=== PATIENT | male | born 1935 | race Two or more races ===

== ENCOUNTER 2017-07-29 17:48 | Inpatient (IN) | payer MEDICARE, MEDICAID ==
[~2017-07-29] VITALS: Ht 154.9 cm; Wt 60.3 kg
--- NOTE | 2017-07-29 18:00 | NUR ---
PATIENT BIB [facility] C/O COUGH AND CONGESTION. PATIENT IS A/OX 3, TURKISH SPEAKING. BREATHING EVEN AND UNLABORED. NO SOB. UNABLE TO OBTAIN HISTORY WITH LANGUAGE BARRIER. SAFETY AND COMFORT MEASURES IN PLACE. AWAITING MD ORDERS.
--- NOTE | 2017-07-29 18:23 | NUR ---
NEW IV STARTED ON LAC, 18 G. BLOOD DRAWN AND SENT TO LAB.
[2017-07-29 18:25] LABS: BASOPHILS # (AUTO) 0.3 /CMM (0.0-0.2); BASOPHILS % (AUTO) 1.8 % (0.0-2.0); EOSINOPHILS # (AUTO) 0.1 /CMM (0.0-0.7); EOSINOPHILS % (AUTO) 0.8 % (0.0-6.0); HEMATOCRIT 25 % (39-51); HEMOGLOBIN 8.3 g/dL (13.5-17.5); LYMPHOCYTES # (AUTO) 0.5 /CMM (0.8-4.8); LYMPHOCYTES % (AUTO) 3.3 % (20.0-44.0); MEAN CORPUSCULAR HEMOGLOBIN 28 PG (26.0-33.0); MEAN CORPUSCULAR HGB CONC 33 g/dl (31.0-36.0); MEAN CORPUSCULAR VOLUME 85 fL (80-96); MONOCYTES # (AUTO) 0.9 /CMM (0.1-1.30); MONOCYTES % (AUTO) 6.3 % (2.0-12.0); NEUTROPHILS # (AUTO) 12.8 /CMM (1.8-8.9); NEUTROPHILS % (AUTO) 87.8 % (43.0-81.0); PLATELET COUNT (AUTO) 277 /CMM (150-450); RDW COEFFICIENT OF VARIATION 16.5 (11.5-15.0); RED BLOOD CELL COUNT(AUTO) 2.98 MIL/uL (4.5-6.0); WHITE BLOOD COUNT (AUTO) 14.6 K/uL (4.3-11.0)
--- NOTE | 2017-07-29 18:27 | NUR ---
MD INFORMED BLOOD PRESSURE IS 84/52. PER MD HOLD LASIX AT THIS TIME. PATIENT REMAINS STABLE. WILL CONTINUE TO MONITOR.
[2017-07-29 18:34] LABS: CALCIUM, SERUM 8.2 mg/dL (8.5-10.1); CARBON DIOXIDE 31 mmol/L (21-32); CHLORIDE 97 mmol/L (98-107); CREATININE 0.9 mg/dL (0.6-1.3); GLUCOSE 320 mg/dL (74-106); POTASSIUM 3.7 mmol/L (3.5-5.1); SODIUM SERUM 133 mmol/L (136-145); UREA NITROGEN, BLOOD 23 mg/dL (7-18)
[2017-07-29 18:41] LABS: TROPONIN I 0.313 ng/mL (0.00-0.056)
[2017-07-29 18:46] LABS: B-TYPE NATRIURETIC PEPTIDE 13499 PG/ML (0-125)
--- NOTE | 2017-07-29 19:00 | NUR ---
RECEIVED REPORT FROM MARLENI SOUSA FOR JOHAN. PT APPEARS COMFORTABLE. AWARE OF CURRENT BP. NNO
[2017-07-29] MEDS ORDERED: METF500T4 PO (19:06)
[2017-07-29] MEDS ORDERED: DOCU-25 PO (19:06)
[2017-07-29] MEDS ORDERED: MIDO10TA PO (19:06)
[2017-07-29] MEDS ORDERED: MECL-102 PO (19:06)
[2017-07-29] MEDS ORDERED: HYDR-552 PO (19:06)
[2017-07-29] MEDS ORDERED: CARV3.122 PO (19:06)
--- NOTE | 2017-07-29 19:38 | NUR ---
[facility] called - DR. Ojeda - is paged via exchanged
--- NOTE | 2017-07-29 19:40 | NUR ---
DR. CROOK SPOKE TO DR. WILEY REGARDING ADMISSION
--- NOTE | 2017-07-29 19:54 | NUR ---
VERBAL ORDERS PER DR. CROOK TO GIVE PT ASA 81MG PO ONE TIME NOW FOR ELEVATED TROP. PT MEDICATED.
--- NOTE | 2017-07-29 19:57 | NUR ---
PT ASSIGNED TO [facility] 114-1
--- NOTE | 2017-07-29 20:03 | NUR ---
REPORT GIVEN TO MARLENI SIMPSON FOR [facility] 114-1
--- NOTE | 2017-07-29 20:21 | NUR ---
PT TO RADIOLOGY FOR CT CHEST
--- NOTE | 2017-07-29 20:28 | NUR ---
PT RETURNED [facility] CT.
--- NOTE | 2017-07-29 20:29 | NUR ---
PT TRANSFERRED TO [facility] 114-1 VIA ACLS PROTOCOL.
--- NOTE | 2017-07-29 20:30 | NUR ---
RN INITIAL NOTE RECEIVED PT IN NO ACUTE DISTRESS IN BED. PT IS A/O X 3 AND ABLE TO MAKE NEEDS KNOWN. PT IS [place] SPEAKING ONLY WITH AT BEDSIDE TO INTERPRET. PT IS ON O2 VIA NC @ 2LPM AND TOLERATING WELL WITH O2 SAT @ 98%. PT NOT C/O ANY SOB, DIFFICULTY BREATHING OR PAIN AT THIS TIME. PT HAS HYPOTENSION AND WAS GIVEN MIDODRINE 10MG IN ER. WILL CONTINUE TO MONITOR BP THROUGHOUT SHIFT. PT HAS LAC 20G IV THAT IS CLEAN DRY INTACT AND PATENT WITH SALINE FLUSH. BED IN LOW LOCK POSITION WITH RIALS UP X 2. CALL LIGHT WITHIN REACH AND ALL SAFETY MEASURES ENSURED AND CARRIED OUT. WILL CONTINUE TO MONITOR PT.
--- NOTE | 2017-07-29 22:00 | NUR ---
MARLENI SENA SPOKE WITH DR WILEY AND RECEIVED ORDERS FOR MIDODRINE 10MG BID PRN FOR BLOOD PRESSURE BELOW 90. Addendum: 07/30/17 at 0636 by CALVIN CARSON RN RECEIVED VERBAL ORDERS FROM DR WILEY.
[2017-07-30] VITALS: BP 94/54
[2017-07-30 04:00] VITALS: BP 98/56
[2017-07-30 06:36] LABS: BASOPHILS % (AUTO) 0.2 % (0.0-2.0); HEMATOCRIT 23 % (39-51); HEMOGLOBIN 7.4 g/dL (13.5-17.5); LYMPHOCYTES # (AUTO) 0.5 /CMM (0.8-4.8); LYMPHOCYTES % (AUTO) 3.7 % (20.0-44.0); MEAN CORPUSCULAR HEMOGLOBIN 28 PG (26.0-33.0); MEAN CORPUSCULAR HGB CONC 32 g/dl (31.0-36.0); MEAN CORPUSCULAR VOLUME 87 fL (80-96); MONOCYTES # (AUTO) 0.7 /CMM (0.1-1.30); MONOCYTES % (AUTO) 5.7 % (2.0-12.0); NEUTROPHILS # (AUTO) 11.2 /CMM (1.8-8.9); NEUTROPHILS % (AUTO) 90.4 % (43.0-81.0); PLATELET COUNT (AUTO) 262 /CMM (150-450); RDW COEFFICIENT OF VARIATION 18.6 (11.5-15.0); RED BLOOD CELL COUNT(AUTO) 2.68 MIL/uL (4.5-6.0); WHITE BLOOD COUNT (AUTO) 12.4 K/uL (4.3-11.0)
--- NOTE | 2017-07-30 06:36 | NUR ---
RN CLOSING NOTE PT REMAINS IN NO ACUTE DISTRESS IN BED. PT DID NOT HAVE ANY SIGNIFICANT CHANGE IN CONDITION DURING SHIFT. ALL NEEDS MET ALL ORDERS CARRIED OUT. WILL ENDORSE CARE TO AM RN FOR CONTINUITY OF CARE.
[2017-07-30 06:59] LABS: B-TYPE NATRIURETIC PEPTIDE 16207 PG/ML (0-125); CALCIUM, SERUM 8.4 mg/dL (8.5-10.1); CARBON DIOXIDE 34 mmol/L (21-32); CHLORIDE 100 mmol/L (98-107); CREATININE 0.7 mg/dL (0.6-1.3); GLUCOSE 231 mg/dL (74-106); MAGNESIUM 1.9 mg/dL (1.8-2.4); PHOSPHORUS 2.8 mg/dL (2.5-4.9); POTASSIUM 3.4 mmol/L (3.5-5.1); SODIUM SERUM 138 mmol/L (136-145); UREA NITROGEN, BLOOD 17 mg/dL (7-18)
[2017-07-30 07:02] LABS: CHOLESTEROL 90 mg/dL (<200); HDL CHOLESTEROL 22 mg/dL (40-60); LDL 57 mg/dL (0-99); THYROID STIMULATING HORMONE 1.224 uIU/mL (0.358-3.74); TRIGLYCERIDES 62 mg/dL (30-150)
--- NOTE | 2017-07-30 07:12 | NUR ---
NET APPLICATIONS DEVELOPER INITIAL NOTE RECEIVED PT AWAKE IN BED IN NO ACUTE DISTRESS. A/O X 3 AND VERBALLY RESPONSIVE, DENIES PAIN OR DISCOMFORTS AT THIS TIME. PT IS DANISH SPEAKING ONLY WITH AT BEDSIDE TO INTERPRET. ON O2 VIA NC @ 2LPM, TOLERATING WELL WITH NO SIB NOTED. PT HAS IV ACCESS ON LAC G# 20G INTACT AND PATENT, SALINE LOCK ONLY. BED IN LOW AND LOCKED POSITION WITH SIDE-RAILS UP X 2. CALL LIGHT WITHIN REACH. ALL SAFETY MEASURES ENSURED. WILL CONTINUE TO MONITOR PT ACCORDINGLY. 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 DR YWNNE ON UNIT AND MADE AWARE. WENT TO CHECK AND EVALUATE PT. WILL CONTINUE TO MONITOR.
[2017-07-30 08:00] VITALS: BP 123/65
[2017-07-30 09:09] LABS: MAGNESIUM 1.9 mg/dL (1.8-2.4)
[2017-07-30 09:29] LABS: THYROID STIMULATING HORMONE 1.16 uIU/mL (0.358-3.74)
--- NOTE | 2017-07-30 10:03 | NUR ---
RN NOTES SWALLOWING EVALUATION DONE BY ST, SAME EVALUATED BY PLASTER FOREMAN. PT PLACED ON CARDIAC/DIABETIC DIET PUREED CONSISTENCY AND RECOMMENDED BOOST VANILLA FLAVOR TID IN BETWEEN MEALS. WILL CONTINUE TO MONITOR
--- NOTE | 2017-07-30 11:05 | NUR ---
RN NOTES PHYSICAL THERAPIST CAME TO EVALUATE PT BUT FAMILY AND PT REFUSED TO BE EVALUATED TODAY.
[2017-07-30 12:00] VITALS: BP 93/52
--- NOTE | 2017-07-30 13:46 | NUR ---
RN NOTES PATIENT SEEN AND EVALUATED BY MD CEE, MOBILE HEAVY EQUIPMENT OPERATOR WITH ORDER TO OBTAIN CONSENT FOR BRONCHOSCOPY ON Wednesday08/02/2017. PATIENT WILL BE NPO AFTER 0600H(08/02/2017) AND START ON IV FLUIDS OF D5 NS AT 75ML/HR AT 0600H ON WEDNESDAY. EXPLAINED PROCEDURE TO INTERPRETED BY SPEECH THERAPY IN [place] WHO HAPPENED TO BE ON THE UNIT AND STATED THE PT AND FAMILY VERBALIZED UNDERSTANDING. WILL CONTINUE TO MONITOR
[2017-07-30 14:32] LABS: INR 1.1 (0.87-1.13); PROTHROMBIN TIME 11.4 SECS (9.5-12.7)
[2017-07-30 16:00] VITALS: BP 91/54
--- NOTE | 2017-07-30 17:01 | NUR ---
RN NOTES PT COMPLAINTS OF PAIN ON UPPER ABDOMEN WITH INTENSITY OF 4/10. PRN NORCO 5/325MG GIVEN WITH RELIEF. PT COMFORTABLY RESTING IN BED AT THIS TIME WITH AT BEDSIDE. WILL CONTINUE TO MONITOR.
--- NOTE | 2017-07-30 18:57 | NUR ---
POLICE RESERVES COMMANDER CLOSING NOTES PT AWAKE AND RESTING IN BED. HOB KEPT ELEVATED. A/O X 3 AND ABLE TO COMMUNICATE VERBALLY IN [place]. AT BEDSIDE TO INTERPRET. ON TELE-MONITORING WITH CURRENT READING OF SR WITH BBB AND HR ON THE 90'S, NO C/O CHEST PAIN AT THIS TIME. MAINTAINED ON O2 VIA NC @ 2LPM, TOLERATING WELL WITH NO SOB NOTED. PT HAS IV ACCESS ON LAC G# 20G INTACT AND PATENT, SALINE LOCK ONLY. MAINTAINED BED IN LOW AND LOCKED POSITION WITH SIDE-RAILS UP X 2. CALL LIGHT WITHIN REACH. ALL SAFETY MEASURES ENSURED. WILL CONTINUE TO MONITOR PT ACCORDINGLY.
[2017-07-30 20:00] VITALS: BP_SYST 86; BP_SYST 90; BP_DIAS 43; BP_DIAS 48
--- NOTE | 2017-07-30 20:00 | NUR ---
BROKE BEATER OPERATOR INITIAL NOTES PT AWAKE AND RESTING IN BED. HOB KEPT ELEVATED. A/O X 3 AND ABLE TO COMMUNICATE VERBALLY IN [place]. AT BEDSIDE TO INTERPRET. ON TELE-MONITORING WITH CURRENT READING OF SR WITH BBB AND HR ON THE 90'S, NO C/O CHEST PAIN AT THIS TIME. MAINTAINED ON O2 VIA NC @ 2LPM, TOLERATING WELL WITH NO SOB NOTED. PT HAS IV ACCESS ON LAC G# 20G PULLED OUT, PLACED ON L-UPPER ARM SALINE LOCK ONLY. MAINTAINED BED IN LOW AND LOCKED POSITION WITH SIDE-RAILS UP X 2. CALL LIGHT WITHIN REACH. ALL SAFETY MEASURES ENSURED. WILL CONTINUE TO MONITOR PT ACCORDINGLY.
[2017-07-31] VITALS (10 sets, daily range): BP systolic 77–119; BP diastolic 37–63
--- NOTE | 2017-07-31 06:15 | NUR ---
WAREHOUSE LOGISTICS COORDINATOR CLOSING NOTES PT AWAKE AND RESTING IN BED. HOB KEPT ELEVATED. A/O X 3 AND ABLE TO COMMUNICATE VERBALLY IN [place]. AT BEDSIDE TO INTERPRET. ON TELE-MONITORING WITH CURRENT READING OF SR WITH BBB AND HR ON THE 101'S, NO C/O CHEST PAIN AT THIS TIME, MORPHINE 2MG/ 1ML GIVEN, WELL TYLENOL 650 FOR TEMP OF 100F, ABLE TO DECREASE TO 99, MAINTAINED ON O2 VIA NC @ 2LPM, TOLERATING WELL WITH NO SOB NOTED. PT HAS IV ACCESS ON LAC G# 20G PULLED OUT, PLACED ON L-UPPER ARM SALINE LOCK ONLY. MAINTAINED BED IN LOW AND LOCKED POSITION WITH SIDE-RAILS UP X 2. CALL LIGHT WITHIN REACH. ALL SAFETY MEASURES ENSURED. WILL CONTINUE TO MONITOR PT ACCORDINGLY.
[2017-07-31 07:43] LABS: EOSINOPHILS % (AUTO) 0.2 % (0.0-6.0); HEMATOCRIT 22 % (39-51); HEMOGLOBIN 7.1 g/dL (13.5-17.5); LYMPHOCYTES # (AUTO) 0.5 /CMM (0.8-4.8); LYMPHOCYTES % (AUTO) 3.6 % (20.0-44.0); MEAN CORPUSCULAR HEMOGLOBIN 29 PG (26.0-33.0); MEAN CORPUSCULAR HGB CONC 32 g/dl (31.0-36.0); MEAN CORPUSCULAR VOLUME 88 fL (80-96); MONOCYTES % (AUTO) 6.6 % (2.0-12.0); NEUTROPHILS # (AUTO) 13.2 /CMM (1.8-8.9); NEUTROPHILS % (AUTO) 89.6 % (43.0-81.0); PLATELET COUNT (AUTO) 253 /CMM (150-450); RDW COEFFICIENT OF VARIATION 18.2 (11.5-15.0); RED BLOOD CELL COUNT(AUTO) 2.49 MIL/uL (4.5-6.0); WHITE BLOOD COUNT (AUTO) 14.8 K/uL (4.3-11.0)
[2017-07-31 09:46] LABS: ALANINE AMINOTRANSFERASE 27 U/L (12-78); ALBUMIN 1.7 g/dL (3.4-5.0); ALKALINE PHOSPHATASE 64 U/L (46-116); ASPARTATE AMINOTRANSFERASE 25 U/L (15-37); BILIRUBIN,TOTAL 0.5 mg/dL (0.2-1.0); CALCIUM, SERUM 8.3 mg/dL (8.5-10.1); CARBON DIOXIDE 30 mmol/L (21-32); CHLORIDE 100 mmol/L (98-107); CREATININE 0.8 mg/dL (0.6-1.3); GLUCOSE 173 mg/dL (74-106); MAGNESIUM 1.8 mg/dL (1.8-2.4); PHOSPHORUS 2.8 mg/dL (2.5-4.9); POTASSIUM 4.5 mmol/L (3.5-5.1); SODIUM SERUM 135 mmol/L (136-145); TOTAL PROTEIN, SERUM 5.4 g/dL (6.4-8.2); UREA NITROGEN, BLOOD 16 mg/dL (7-18)
--- NOTE | 2017-07-31 11:16 | NUR ---
RT PATIENT REFUSED RESP HHN TX. PATIENT WANTS TO SLEEP. AT BEDSIDE. B/S CLEAR, NO SOB NOTED. RN TERE NOTIFIED
--- NOTE | 2017-07-31 14:30 | NUR ---
CONSENT SIGNED FOR 1 UNIT OF PRBC. CHARGE NURSE ODETTE Rogers TRANSLATED TO PT IN ENGLISH.
--- NOTE | 2017-07-31 14:48 | NUR ---
1 UNIT OF PRBC STARTED.
--- NOTE | 2017-07-31 18:00 | NUR ---
PT 1 UNIT OF PRBC TRANSFUSION COMPLETED V/S STABLE. PT COMPLAINED OF LIGHT CHEST PAIN 3-4. NORCO GIVEN B/P 98/61. PT RESTING COMFORTABLY . NO SOB AND NO RESP DISTRESS. PT SPO2 98%. FAMILY @ BEDSIDE AND DAUGHTER.
--- NOTE | 2017-07-31 20:10 | NUR ---
VINE FRUIT FARMING SUPERVISOR INITIAL NOTES RECEIVED PT AWAKE AND RESTING IN BED. HOB KEPT ELEVATED. A/O X 3 AND ABLE TO COMMUNICATE VERBALLY IN [place]. AT BEDSIDE TO INTERPRET. ON TELE-MONITORING WITH CURRENT READING OF SR WITH BBB AND HR ON THE 94, NO C/O CHEST PAIN AT THIS TIME, MAINTAINED ON O2 VIA NC @ 2LPM, TOLERATING WELL WITH NO SOB NOTED. PT HAS IV ACCESS ON L-UPPER ARM SALINE LOCK 22 G ONLY, S/P PRBC TRANSFUSION NO A/R NOTED, AFEBRILE. MAINTAINED BED IN LOW AND LOCKED POSITION WITH SIDE-RAILS UP X 2. CALL LIGHT WITHIN REACH. ALL SAFETY MEASURES ENSURED. WILL CONTINUE TO MONITOR PT ACCORDINGLY.
--- NOTE | 2017-07-31 21:51 | NUR ---
2000 PM BOOST GLUCOSE CONTROL NOT STOCKED, NOT GIVEN, PT BS STABLE 116 NO COVERAGE, MARISA AND ATMOSPHERIC TECHNICIAN NOTIFIED.
[2017-08-01] VITALS: BP 100/68
[2017-08-01 04:00] VITALS: BP 89/53
--- NOTE | 2017-08-01 06:25 | NUR ---
MS RN NOTE PATIENT STABLE. NO DISCOMFORT NOTED. IV SITE INTACT. WILL ENDORSE TO DAY SHIFT FOR JOHAN.
--- NOTE | 2017-08-01 07:15 | NUR ---
RN OPEN NOTES RECIEVED REPORT FROM CASE HARDENER NURSE. WILL CONTINUE TO ASSESS AND MONITOR PATIENT
[2017-08-01 08:00] VITALS: BP 106/64
--- NOTE | 2017-08-01 10:35 | NUR ---
DR HADDAD AT BEDSIDE
[2017-08-01] MEDS ORDERED: AMOX-430 PO (10:44)
--- NOTE | 2017-08-01 11:46 | NUR ---
PLAQUE MAKER NOTES PATIENT DISCHARGE ORDER RECEIVED AND CARRIED OUT. PATIENT REFUSED BRONCHOSCOPY AND REQUESTED TO GO HOME; DR HADDAD DISCHARGE THE PATIENT HOME. PATIENT IS LEAVING AT A STABLE CONDITION. NO SIGNS AND SYMPTOMS OF DISTRESS. ALL DISCHARGE INFORMATION EXPLAINED TO PATIENT AND AND TRANSLATED WITH CHARGE NURSE, ODETTE. ALL PERSONAL BELONGING WITH PATIENT AT TIME OF DISCHARGE. PRESCRIPTION SENT TO PHARMACY ELECTRONICALLY TO PATIENT PREFERRED PHARMACY. PATIENT SIGNED BOTH DISCHARGE PAPERS AND BELONGING LIST; BOTH FORMS PLACED IN THE CHART. IV SITES REMOVED. ID BANDS REMOVED. PATIENT WILL FOLLOW UP WITH HIS PRIMARY CARE PHYSICIAN WITHIN ONE WEEK OF DISCHARGE. PATIENT WILL CALL PCP TO MAKE AN APPOINTMENT IT IS WEDNESDAY TODAY AND CLINIC IS CURRENTLY CLOSED. PICTURE WAS TAKEN AND PLACED IN THE CHART. PATIENT ESCORTED TO [facility] WITH A WHEELCHAIR AND A WASHING MACHINE ASSEMBLER AND TRANSPORTED HOME VIA A PRIVATE CAR ACCOMPANIED BY HIS .
== END 2017-08-01 11:39 | disposition home or self-care (01) | DRG 280 ==
LOC: ER 17:51 → TELE-TD 20:22 → TELE1 20:57 → MEDSG1 07-31 09:55
PROC: 30233N1 Transfusion of Nonautologous Red Blood Cells into Peripheral Vein, Percutaneous Approach (ICD-10-PCS; principal; 2017-07-31)
DX: I11.0 Hypertensive heart disease with heart failure (principal); I21.4 Non-ST elevation (NSTEMI) myocardial infarction; J96.01 Acute respiratory failure with hypoxia; N17.0 Acute kidney failure with tubular necrosis; J18.9 Pneumonia, unspecified organism; J90 Pleural effusion, not elsewhere classified; I95.9 Hypotension, unspecified; C34.90 Malignant neoplasm of unspecified part of unspecified bronchus or lung; E86.0 Dehydration; E11.9 Type 2 diabetes mellitus without complications; J98.11 Atelectasis; D64.9 Anemia, unspecified; Z95.1 Presence of aortocoronary bypass graft; E87.6 Hypokalemia; I25.10 Atherosclerotic heart disease of native coronary artery without angina pectoris; I50.31 Acute diastolic (congestive) heart failure; Z87.891 Personal history of nicotine dependence; Z92.3 Personal history of irradiation; Z85.118 Personal history of other malignant neoplasm of bronchus and lung; R91.8 Other nonspecific abnormal finding of lung field; Z66 Do not resuscitate
CPT/HCPCS: 36415; 36600; 71010-TC; 71250-TC; 80048-TC; 80053-TC; 80061-TC; 82728-TC; 82803-TC; 82962-TC; 83540-TC; 83735-TC; 83880; 84100-TC; 84439-TC; 84443-TC; 84484-TC; 85025-TC; 85730-TC; 86850-TC; 86921-TC; 87081-TC; 92611-TC; 93307-TC; 94799-TC; A4606; J1650; J1815; J1940; J2270; J2405; J2543; J7050; J7060; P9016-BL; Z7610